=== PATIENT | male | born 1935 | race Caucasian/White ===

== ENCOUNTER 2017-12-17 03:52 | Emergency (ER) | payer MEDICARE ==
--- NOTE | 2017-12-17 04:06 | ED ---
Male Urogenital HPI - General Chief complaint: Urogenital Stated complaint: Male Time Seen by Provider: 12/17/17 04:05 Source: patient, family Mode of arrival: ambulatory Limitations: no limitations - History of Present Illness Initial comments: Jasmeet is an 82-year-old male with a history of kidney stones who presents the emergency department today for evaluation of dysuria, hematuria and difficulty urinating. The patient reports that for the past day and half he has been unable to void. He states that he has to strain to urinate and when he does there is blood in his urine he doesn't feel that he can empty his bladder. He does have a history of kidney stones but no known history of urinary tract infections. The patient is not circumcised. The patient actually has an appointment to see urology on Monday of this week to discuss difficulties his been having with his foreskin. The patient denies any fevers, chills, nausea or vomiting. He reports he is otherwise well. - Related Data Allergies Allergy/AdvReac Type Severity Reaction Status Date / Time No Known Allergies Allergy Verified 12/17/17 04:01 Review of Systems ROS Statement: Those systems with pertinent positive or pertinent negative responses have been documented in the HPI. ROS Other: All systems not noted in ROS Statement are negative. Past Medical History Past Medical History: GERD/Reflux, Hypertension Additional Past Medical History / Comment(s): kidney stones History of Any Multi-Drug Resistant Organisms: None Reported Past Surgical History: Hernia Repair Past Psychological History: No Psychological Hx Reported Smoking Status: Never smoker Past Alcohol Use History: None Reported Past Drug Use History: None Reported General Exam - General Exam Comments Initial Comments: Physical Exam GENERAL: Patient is well-developed and well-nourished. Patient is nontoxic and well- hydrated and is in no distress. HENT: Normocephalic, Atraumatic. EYES: PERRL, EOMI PULMONARY: Unlabored respirations. No audible rales rhonchi or wheezing was noted. CARDIOVASCULAR: There is a regular rate and rhythm without any murmurs gallops or rubs. ABDOMEN: Mild tenderness to palpation in the suprapubic region SKIN: Skin is clear with no lesions or rashes and otherwise unremarkable. : Uncircumcised male NEUROLOGIC: Patient is alert and oriented x3. Moving all extremities spontaneously MUSCULOSKELETAL: Normal extremities with adequate strength and full range of motion. No lower extremity swelling or edema. No calf tenderness. PSYCHIATRIC: Normal psychiatric evaluation. Limitations: no limitations Limitations: no limitations Course Vital Signs 12/17/17 03:58 Temperature 98 F Pulse Rate 68 Respiratory 20 Rate Blood Pressure 183/81 O2 Sat by Pulse 98 Oximetry Medical Decision Making - Medical Decision Making Patient with inability to fully void his bladder for one day, reports that he has noticed some blood in his urine No history of UTI in the past Is not circumcised Plans to follow up with urology on Monday for evaluation of his foreskin Post void residual is greater than 475 The catheter was placed Urinalysis with no evidence of urinary tract infection The patient reports resolution of his symptoms after Carmen cath placement patient has a follow-up appointment with urology scheduled Carmen catheter care was discussed with the patient, return parameters were discussed and the patient was discharged home in stable condition - Lab Data Lab Results 12/17/17 Range/Units 04:00 Urine Color Colorless Urine Appearance Clear (Clear) Urine pH 6.0 (5.0-8.0) Ur Specific [place] 1.002 (1.001-1.035) Urine Protein Negative (Negative) Urine Glucose (UA) Negative (Negative) Urine Ketones Negative (Negative) Urine Blood Small H (Negative) Urine Nitrite Negative (Negative) Urine Bilirubin Negative (Negative) Urine Urobilinogen <2.0 (<2.0) mg/dL Ur Leukocyte Esterase Negative (Negative) Urine RBC <1 (0-5) /hpf Urine WBC <1 (0-5) /hpf Disposition Clinical Impression: Urinary retention Disposition: HOME SELF-CARE Condition: Good Instructions: Carmen Catheter Placement and Care (ED) Is patient prescribed a controlled substance at d/c from ED?: No Referrals: Dakota Sequeira DO [Primary Care Provider] - 1-2 days Bhavik Rousseau MD [STAFF PHYSICIAN] - 1-2 days
[2017-12-17 04:27] LABS: Appearance,Urine Clear (Clear); Bilirubin,Urine Negative (Negative); Blood,Urine Small (Negative); Color,Urine Colorless; Glucose,Urine (UA) Negative (Negative); Ketones,Urine Negative (Negative); Leukocyte Esterase,Urine Negative (Negative); Nitrite,Urine Negative (Negative); Protein,Urine Negative (Negative); RBC,Urine <1 /hpf (0-5); Specific Gravity,Urine 1.002 (1.001-1.035); Urobilinogen,Urine <2.0 mg/dL (<2.0); WBC,Urine <1 /hpf (0-5)
[2017-12-17 05:22] VITALS: BP 158/70; PULSE 64; RESP 16; TEMP 97.9
== END 2017-12-17 05:22 | disposition home or self-care (01) ==
LOC: EC 03:52
DX: R33.9 Retention of urine, unspecified (principal); R30.0 Dysuria; R31.9 Hematuria, unspecified
CPT/HCPCS: 51702; 81001; 87086; 99284

== ENCOUNTER 2018-01-10 02:58 | Emergency (ER) | payer MEDICARE ==
[2018-01-10 03:06] VITALS: BP 146/81; PULSE 94; RESP 20; TEMP 97.9
[2018-01-10 03:27] LABS: Appearance,Urine Clear (Clear); Bilirubin,Urine Negative (Negative); Blood,Urine Small (Negative); Color,Urine Light Yellow; Glucose,Urine (UA) Negative (Negative); Ketones,Urine Negative (Negative); Leukocyte Esterase,Urine Large (Negative); Mucus,Urine Rare /hpf; Nitrite,Urine Negative (Negative); Protein,Urine Negative (Negative); RBC,Urine 1 /hpf (0-5); Specific Gravity,Urine 1.008 (1.001-1.035); Urobilinogen,Urine <2.0 mg/dL (<2.0); WBC,Urine 109 /hpf (0-5)
[2018-01-10] MEDS ORDERED: CEPHALEXIN 500MG STARTER PACK 4 CAP BTL PO STA (03:42)
--- NOTE | 2018-01-10 03:47 | ED ---
Male Urogenital HPI - General Chief complaint: Urogenital Stated complaint: Urinary Retention Time Seen by Provider: 01/10/18 03:08 Source: patient Mode of arrival: ambulatory Limitations: no limitations - History of Present Illness Initial comments: Jasmeet is an 82-year-old gentleman who was seen last month for urinary retention. He is subsequently discharged home. Patient reports he was unable to establish follow-up with urology. He states that his catheter again leaking any followed up in the emergency department where his catheter was subsequently removed. Patient reports that since removal of his catheter on Monday he's been able to urinate but only very small amounts and experiences significant dysuria when urinating. He gets no relief from the urge to urinate when he is able to pass urine. He has a persistent sensation of needing to urinate. Patient return to the ER this morning concerned that he is again retaining urine. - Related Data Previous Rx's Medication Instructions Recorded Cephalexin [Keflex] 500 mg PO Q6HR 7 Days #28 cap 01/10/18 Allergies Allergy/AdvReac Type Severity Reaction Status Date / Time No Known Allergies Allergy Verified 01/10/18 03:06 Review of Systems ROS Statement: Those systems with pertinent positive or pertinent negative responses have been documented in the HPI. ROS Other: All systems not noted in ROS Statement are negative. Past Medical History Past Medical History: GERD/Reflux, Hypertension Additional Past Medical History / Comment(s): kidney stones History of Any Multi-Drug Resistant Organisms: None Reported Past Surgical History: Hernia Repair Past Psychological History: No Psychological Hx Reported Smoking Status: Never smoker Past Alcohol Use History: None Reported Past Drug Use History: None Reported General Exam - General Exam Comments Initial Comments: Physical Exam GENERAL: Uncomfortable appearing elderly gentleman HENT: Normocephalic, Atraumatic. EYES: PERRL, EOMI PULMONARY: Unlabored respirations. No audible rales rhonchi or wheezing was noted. CV: RRR ABDOMEN: Soft with normal bowel sounds. Tenderness to palpation in the suprapubic region with palpable bladder SKIN: Skin is clear with no lesions or rashes and otherwise unremarkable. : Deferred NEUROLOGIC: Patient is alert and oriented x3. Moving all extremities spontaneously MUSCULOSKELETAL: Normal extremities with adequate strength and full range of motion. No lower extremity swelling or edema. No calf tenderness. PSYCHIATRIC: Normal psychiatric evaluation. Limitations: no limitations Limitations: no limitations Course Vital Signs 01/10/18 03:03 Temperature 97.9 F Pulse Rate 94 Respiratory 20 Rate Blood Pressure 146/81 O2 Sat by Pulse 95 Oximetry Medical Decision Making - Medical Decision Making Patient was seen and evaluated, patient was able to provide a urine sample, postvoid residual was greater than [address] a Carmen catheter. Carmen catheter was placed and approximately 650 mL of yellow urine drained. Patient experienced significant relief of his discomfort after Carmen catheter placement. Urinalysis was suggestive of urinary tract infection. Aortic Keflex for the patient. However patient then stated that he is currently been prescribed Bactrim for urinary tract infection which she is compliant on. Advised him continue this therapy. Patient discharged home in stable condition. - Lab Data Lab Results 01/10/18 Range/Units 03:14 Urine Color Light Yellow Urine Appearance Clear (Clear) Urine pH 6.0 (5.0-8.0) Ur Specific [place] 1.008 (1.001-1.035) Urine Protein Negative (Negative) Urine Glucose (UA) Negative (Negative) Urine Ketones Negative (Negative) Urine Blood Small H (Negative) Urine Nitrite Negative (Negative) Urine Bilirubin Negative (Negative) Urine Urobilinogen <2.0 (<2.0) mg/dL Ur Leukocyte Esterase Large H (Negative) Urine RBC 1 (0-5) /hpf Urine WBC 109 H (0-5) /hpf Urine WBC Clumps Occasional H (None) /hpf Urine Mucus Rare H (None) /hpf Disposition Clinical Impression: Urinary retention, UTI (urinary tract infection) Disposition: HOME SELF-CARE Condition: Good Instructions: Urinary Tract Infection in Men (ED) Prescriptions: Cephalexin [Keflex] 500 mg PO Q6HR 7 Days #28 cap Is patient prescribed a controlled substance at d/c from ED?: No Referrals: None,Stated [Primary Care Provider] - 1-2 days [facility] [NON-STAFF] - 1-2 days Saskia Alcantara MD [REFERRING] - 1-2 days Bhavik Rousseau MD [STAFF PHYSICIAN] - 1-2 days
== END 2018-01-10 04:02 | disposition home or self-care (01) ==
LOC: EC 02:58
DX: N39.0 Urinary tract infection, site not specified (principal)
CPT/HCPCS: 51702; 81001; 99284

== ENCOUNTER → 2019-08-01 | Outpatient (CLI) | payer MEDICARE ==
[2019-08-01 15:00] LABS: HCT 40.9 % (39.0-53.0); HGB 13.5 gm/dL (13.0-17.5); MCH 31.6 pg (25.0-35.0); MCV 95.8 fL (80.0-100.0); Mean Platelet Volume 7.2; Platelet Count 190 k/uL (150-450); RBC 4.27 m/uL (4.30-5.90); RDW 13.5 % (11.5-15.5); WBC 7.3 k/uL (3.8-10.6)
[2019-08-02 00:20] LABS: African American GFR (CKD) 63.1 (60.0-200.0); Albumin 4.4 g/dL (3.80-4.90); Albumin/Globulin Ratio 2.1 (1.60-3.17); Anion Gap 9.4 mmol/L (4.00-12.00); BUN/Creat Ratio 17.5 Ratio (12.00-20.00); Calcium 9.3 mg/dL (8.7-10.3); Carbon Dioxide 26.6 mmol/L (21.6-31.8); Globulin 2.1 g/dL (1.6-3.3); Non-African American GFR(CKD) 54.4 (60.0-200.0); Potassium 3.7 mmol/L (3.5-5.5); Total Protein 6.5 g/dL (6.2-8.2)
== END | disposition home or self-care (01) ==
LOC: LABWHC1 14:36
PROVIDERS: ATTEND Internal Medicine Interventional Cardiology
DX: I10 Essential (primary) hypertension (principal)
CPT/HCPCS: 36415; 80053; 85027

== ENCOUNTER → 2019-08-29 | Outpatient (CLI) | payer MEDICARE ==
[2019-08-29 16:42] LABS: African American GFR (CKD) 70.1 (60.0-200.0); Non-African American GFR(CKD) 60.5 (60.0-200.0)
== END | disposition home or self-care (01) ==
LOC: LABWHC1 09:50
PROVIDERS: ATTEND Internal Medicine Gastroenterology
DX: Z01.812 Encounter for preprocedural laboratory examination (principal)
CPT/HCPCS: 36415; 82565; 84520

== ENCOUNTER → 2020-04-07 | Outpatient (CLI) | payer MEDICARE ==
--- NOTE | 2020-04-07 14:19 | XR ---
KUB HISTORY: N 20.0, R 31.9 Frontal KUB submitted, comparison CT 05/13/2013 Calcification superimposed over the lower pole the right kidney measuring approximately 9 mm. Calcifi cation is present superimposed over the left kidney measuring 4 mm. There are calcifications within t he pelvis which could be vascular. IMPRESSION: Bilateral nephrolithiasis.
== END | disposition home or self-care (01) ==
LOC: RADXRMAIN 11:16
PROVIDERS: ATTEND Urology
DX: N20.0 Calculus of kidney (principal)
CPT/HCPCS: 74018